=== PATIENT | female | born 1955 | race Caucasian/White ===

== ENCOUNTER → 2019-03-12 16:16 | Outpatient (BNVA) | payer MEDICARE, MEDICAID, SELFPAY | PROVIDERS: Family Provider Nurse Practitioner; PCP Nurse Practitioner; Visit Provider Nurse Practitioner | DX: J44.9 Chronic obstructive pulmonary disease, unspecified (principal); I10 Essential (primary) hypertension; M54.5 Low back pain; E11.65 Type 2 diabetes mellitus with hyperglycemia; J30.89 Other allergic rhinitis; E03.8 Other specified hypothyroidism | CPT/HCPCS: 80053; 80061; 81003; 83036 ==

== ENCOUNTER → 2019-09-02 09:10 | Outpatient (BNVA) | payer MEDICARE, MEDICAID, SELFPAY | PROVIDERS: Family Provider Nurse Practitioner; PCP Nurse Practitioner; Visit Provider Nurse Practitioner | DX: E11.65 Type 2 diabetes mellitus with hyperglycemia (principal); I10 Essential (primary) hypertension; J44.9 Chronic obstructive pulmonary disease, unspecified; E11.40 Type 2 diabetes mellitus with diabetic neuropathy, unspecified; J30.89 Other allergic rhinitis; E03.8 Other specified hypothyroidism; M54.5 Low back pain | CPT/HCPCS: 80053; 80061; 83036; 83735; 84443 ==

== ENCOUNTER → 2019-10-24 14:46 | Outpatient (BNVA) | payer MEDICARE, MEDICAID, SELFPAY | PROVIDERS: Family Provider Nurse Practitioner; PCP Nurse Practitioner; Visit Provider Nurse Practitioner | DX: E11.65 Type 2 diabetes mellitus with hyperglycemia (principal); L03.116 Cellulitis of left lower limb | CPT/HCPCS: 73502; 85025 ==

== ENCOUNTER → 2019-12-05 10:38 | Outpatient (BNVA) | payer MEDICARE, MEDICAID, SELFPAY | PROVIDERS: Family Provider Nurse Practitioner; PCP Nurse Practitioner; Visit Provider Nurse Practitioner | DX: E03.8 Other specified hypothyroidism (principal); E11.65 Type 2 diabetes mellitus with hyperglycemia; E11.40 Type 2 diabetes mellitus with diabetic neuropathy, unspecified; I10 Essential (primary) hypertension; J44.9 Chronic obstructive pulmonary disease, unspecified; J30.89 Other allergic rhinitis; R09.89 Other specified symptoms and signs involving the circulatory and respiratory systems | CPT/HCPCS: 80053; 81000; 83036; 84443 ==

== ENCOUNTER 2019-12-26 13:31 | Outpatient (CLI) | payer MEDICARE, MEDICAID, SELFPAY ==
--- NOTE | 2019-12-26 14:15 | USCV_ITS ---
Ronit Kathie Age: 64 Gender: F : 1955 Exam Date: 12/26/2019 13:57 Ordering Phys: Alfredo Dobbs Technologist: Sebastien Roque Exam Location: [facility] Indication: BRUITS Risk Factors: None Previous Vascular Surgery: None Right Brachial BP: / Left Brachial BP: / Right Left Velocity (cm/s) Spectral Plaque Velocity (cm/s) Spectral Plaque Syst/Diast Broadening Syst/Diast Broadening 54.00/ 11.10 Prox CCA 68.60 / 15.10 60.90/ 13.70 Mid CCA 59.50 / 14.30 54.70/ 13.40 Distal CCA 64.80 / 12.80 52.30/ 10.30 Prox ICA 48.20 / 12.10 56.60/ 10.90 Mid ICA 52.80 / 12.10 53.50/ 11.60 Distal ICA 52.80 / 7.50 54.10 ECA 70.10 0.93 ICA/CCA 0.77 Antegrade Vertebral Antegrade 25.60/ 8.30 cm/s 40.70/ 10.60 cm/s Tri Subclavian Tri 81.40 95.00 CONCLUSIONS Right ICA stenosis <50%. Left ICA stenosis <50%. Normal antegrade Doppler flow noted in the right vertebral artery. Normal antegrade Doppler flow noted in the left vertebral artery. Feliciano Eaton MD (Electronically Signed) Final Date: 26 December 2019 16:59 S
== END 2019-12-26 13:32 | disposition home or self-care (01) ==
LOC: RAD 13:34
PROVIDERS: PCP Nurse Practitioner; Visit Provider Nurse Practitioner
DX: R09.89 Other specified symptoms and signs involving the circulatory and respiratory systems (principal); I65.23 Occlusion and stenosis of bilateral carotid arteries
CPT/HCPCS: 93880

== ENCOUNTER → 2020-03-09 11:41 | Outpatient (BNVA) | payer MEDICARE, MEDICAID, SELFPAY | PROVIDERS: PCP Nurse Practitioner; Visit Provider Nurse Practitioner | DX: E11.65 Type 2 diabetes mellitus with hyperglycemia (principal); I10 Essential (primary) hypertension; E11.40 Type 2 diabetes mellitus with diabetic neuropathy, unspecified; J44.9 Chronic obstructive pulmonary disease, unspecified; J30.89 Other allergic rhinitis; E03.8 Other specified hypothyroidism | CPT/HCPCS: 80053; 80061; 82043; 83036; 84443 ==

== ENCOUNTER → 2020-03-19 10:40 | Outpatient (BNVA) | payer MEDICARE, MEDICAID, SELFPAY | PROVIDERS: PCP Nurse Practitioner; Visit Provider Nurse Practitioner Family | DX: R30.0 Dysuria (principal); N30.00 Acute cystitis without hematuria | CPT/HCPCS: 81000 ==

== ENCOUNTER → 2020-05-06 09:44 | Outpatient (BNVA) | payer MEDICARE, MEDICAID, SELFPAY | PROVIDERS: PCP Nurse Practitioner; Visit Provider Nurse Practitioner | DX: E11.65 Type 2 diabetes mellitus with hyperglycemia (principal); E11.40 Type 2 diabetes mellitus with diabetic neuropathy, unspecified; I10 Essential (primary) hypertension; E03.8 Other specified hypothyroidism; J41.0 Simple chronic bronchitis; J30.89 Other allergic rhinitis | CPT/HCPCS: 80053; 83036; 84443 ==

== ENCOUNTER → 2020-07-01 15:59 | Outpatient (BNVA) | payer MEDICARE, MEDICAID, SELFPAY | PROVIDERS: PCP Nurse Practitioner; Visit Provider Nurse Practitioner | DX: R19.7 Diarrhea, unspecified (principal) | CPT/HCPCS: 81000; 87506 ==

== ENCOUNTER → 2020-08-12 11:51 | Outpatient (BNVA) | payer MEDICARE, MEDICAID, SELFPAY | PROVIDERS: PCP Nurse Practitioner; Visit Provider Nurse Practitioner | DX: M47.896 Other spondylosis, lumbar region (principal); M54.5 Low back pain | CPT/HCPCS: 72100 ==

== ENCOUNTER → 2020-09-01 10:26 | Outpatient (BNVA) | payer MEDICARE, MEDICAID, SELFPAY | PROVIDERS: PCP Nurse Practitioner; Visit Provider Nurse Practitioner | DX: E11.65 Type 2 diabetes mellitus with hyperglycemia (principal); E11.40 Type 2 diabetes mellitus with diabetic neuropathy, unspecified; I10 Essential (primary) hypertension; J41.0 Simple chronic bronchitis; J30.89 Other allergic rhinitis; R19.7 Diarrhea, unspecified | CPT/HCPCS: 80053; 83036; 84443; 85025 ==

== ENCOUNTER → 2020-11-27 09:34 | Outpatient (BNVA) | payer MEDICARE, MEDICAID, SELFPAY | PROVIDERS: PCP Nurse Practitioner; Visit Provider Nurse Practitioner | DX: E11.65 Type 2 diabetes mellitus with hyperglycemia (principal); I10 Essential (primary) hypertension; J41.0 Simple chronic bronchitis; E11.40 Type 2 diabetes mellitus with diabetic neuropathy, unspecified; J30.89 Other allergic rhinitis; B02.23 Postherpetic polyneuropathy; E03.8 Other specified hypothyroidism | CPT/HCPCS: 80053; 80061; 83036; 84443; 85025 ==

== ENCOUNTER → 2021-02-23 16:07 | Outpatient (BNVA) | payer OTHER, MEDICAID, SELFPAY | PROVIDERS: PCP Nurse Practitioner; Visit Provider Nurse Practitioner | DX: E11.65 Type 2 diabetes mellitus with hyperglycemia (principal) | CPT/HCPCS: 80053; 82043; 83036 ==

== ENCOUNTER → 2021-05-18 14:14 | Outpatient (BNVA) | payer MEDICARE, MEDICAID, SELFPAY | PROVIDERS: PCP Nurse Practitioner; Visit Provider Nurse Practitioner | DX: E03.8 Other specified hypothyroidism (principal); E11.65 Type 2 diabetes mellitus with hyperglycemia; J41.0 Simple chronic bronchitis; E11.40 Type 2 diabetes mellitus with diabetic neuropathy, unspecified; J30.89 Other allergic rhinitis; I10 Essential (primary) hypertension | CPT/HCPCS: 84443 ==

== ENCOUNTER → 2021-08-30 09:49 | Outpatient (BNVA) | payer MEDICARE, MEDICAID, SELFPAY | PROVIDERS: PCP Nurse Practitioner; Visit Provider Nurse Practitioner Family | DX: E11.65 Type 2 diabetes mellitus with hyperglycemia (principal); J41.0 Simple chronic bronchitis | CPT/HCPCS: 81000 ==

== ENCOUNTER → 2021-11-02 11:10 | Outpatient (BNVA) | payer MEDICARE, MEDICAID, SELFPAY | PROVIDERS: PCP Nurse Practitioner; Visit Provider Nurse Practitioner | DX: J41.0 Simple chronic bronchitis (principal); J30.89 Other allergic rhinitis; E11.40 Type 2 diabetes mellitus with diabetic neuropathy, unspecified; E03.8 Other specified hypothyroidism; I10 Essential (primary) hypertension; E11.65 Type 2 diabetes mellitus with hyperglycemia | CPT/HCPCS: 80053; 80061; 81000; 83036; 84443 ==

== ENCOUNTER → 2022-01-18 11:21 | Outpatient (BNVA) | payer MEDICARE, MEDICAID, SELFPAY | PROVIDERS: PCP Nurse Practitioner; Visit Provider Nurse Practitioner | DX: E11.65 Type 2 diabetes mellitus with hyperglycemia (principal) | CPT/HCPCS: 80053; 81000; 82607; 83036; 85025 ==

== ENCOUNTER 2022-03-23 10:30 | Outpatient (CLI) | payer MEDICARE, MEDICAID, SELFPAY ==
--- NOTE | 2022-03-23 11:45 | MR_ITS ---
WS: [id number] MRI HEAD WITHOUT CONTRAST TECHNIQUE: Sagittal T1, T2 axial, T2 axial FLAIR, axial and coronal T1 images, axial susceptibility w eighted imaging, axial diffusion weighted images, and coronal T2 images were obtained. CLINICAL INFORMATION: R41.3 - Other amnesia COMPARISON: None. FINDINGS: No evidence of restricted diffusion to suggest acute ischemia. Ventricular system and basal cisterns are patent. Mild small vessel changes. Mild parenchymal volume loss. Normal posterior fossa. Normal v ascular flow voids at the skull base. No extra-axial fluid collections. No evidence of mass or mass e ffect. Mild mucosal thickening RIGHT mastoid air cells. Normal posterior nasopharynx. Normal parapharyngeal fat. Normal optic chiasm and pituitary infundibulum. Normal cavernous sinuses and Meckel's cave. MR/MR head wo con* [id number] IMPRESSION: 1. No evidence of restricted diffusion to suggest acute ischemia. 2. Mild small vessel changes. Mild parenchymal volume loss. 3. No hemosiderin on susceptibly weighted images. 4. Normal optic chiasm and pituitary infundibulum. 5. Paranasal sinuses are well aerated. Mild mucosal thickening RIGHT mastoid a ir cells. 6. No other suspicious findings.
== END 2022-03-23 10:31 | disposition home or self-care (01) ==
LOC: RAD 10:33
PROVIDERS: PCP Nurse Practitioner; Visit Provider Nurse Practitioner
DX: R41.3 Other amnesia (principal)
CPT/HCPCS: 70551

== ENCOUNTER → 2022-03-25 09:51 | Outpatient (BNVA) | payer MEDICARE, MEDICAID, SELFPAY | PROVIDERS: PCP Nurse Practitioner; Visit Provider Nurse Practitioner | DX: E11.65 Type 2 diabetes mellitus with hyperglycemia (principal) | CPT/HCPCS: 80053; 80061; 82043; 83036; 84443 ==

== ENCOUNTER → 2022-06-15 11:35 | Outpatient (BNVA) | payer MEDICARE, MEDICAID, SELFPAY | PROVIDERS: PCP Nurse Practitioner; Visit Provider Nurse Practitioner | DX: E11.65 Type 2 diabetes mellitus with hyperglycemia (principal) | CPT/HCPCS: 80053; 80061; 81000 ==

== ENCOUNTER → 2022-08-30 12:08 | Outpatient (BNVA) | payer MEDICARE, MEDICAID, SELFPAY | PROVIDERS: PCP Nurse Practitioner; Visit Provider Nurse Practitioner | DX: J41.0 Simple chronic bronchitis (principal); F41.8 Other specified anxiety disorders; J30.89 Other allergic rhinitis; E11.40 Type 2 diabetes mellitus with diabetic neuropathy, unspecified; E03.8 Other specified hypothyroidism; I10 Essential (primary) hypertension; E11.65 Type 2 diabetes mellitus with hyperglycemia; R39.11 Hesitancy of micturition; L30.9 Dermatitis, unspecified | CPT/HCPCS: 80053; 82043; 83036; 84443 ==

== ENCOUNTER → 2022-11-29 09:42 | Outpatient (BNVA) | payer MEDICARE, MEDICAID, SELFPAY | PROVIDERS: PCP Nurse Practitioner; Visit Provider Nurse Practitioner | DX: E11.65 Type 2 diabetes mellitus with hyperglycemia | CPT/HCPCS: 82043 ==

== ENCOUNTER 2024-10-17 10:06 | Emergency (ER) | payer MEDICARE, MEDICAID, SELFPAY ==
--- NOTE | 2024-10-17 | XR_ITS ---
WS: [id number] Right shoulder, AP postreduction view, 10/17/2024,1120 hours Clinical Data: POST REDUCTION Comparison: Right shoulder, 10/17/2024 Findings: The right humeral head is relocated in proper position adjacent to the glenoid fossa. XR/XR shoulder RT 1V [id number] Impression: Reduction of right shoulder dislocation.
[2024-10-17 10:07] VITALS: BP 139/78; PULSE 60; RESP 20; TEMP 36.4; O2SAT 90
--- OUTSIDE RECORDS SUMMARY | 2024-10-17 10:13 | XMS_ITS | Clinical Summary ---
Author Organization [facility] [place] Address [address] [place] [address] Care Team Providers Care Rodeo Clown Name Role Phone Non-Staff, Physician Primary Care Provider Unava ilable Allergies Active Allergy Reactions Criticality Noted Date Comments Citric Acid Rash Low 05/18/2011 Clindamycin Other (See Comments) High 05/15/2009 Itch, elevated blood pressure Fluconazole Itching,Dizziness Low 04/10/2012 Ibuprofen Other (See Comments) 04/14/2009 Causes jittery. Latex Rash Low 04/14/2009 Lemon Unknown 04/14/2009 '' Blisters form'' Mercury (Elemental) Unknown 04/14/2009 Metal, '' Metal filling have been the cause of all her problems.'' Povidone-Iodine Other (See Comments) 04/14/2009 '' Causes blisters'' Procaine Other (See Comments) 04/14/2009 Jittery and excited. Unclassified Drug Other (See Comments) 09/11/19 13 Jalapeno pepper cause blisters, old spine cologne Medications CHLORPHENIRAMINE MALEATE (CHLOR-TABLET PO) Take 4 mg by mouth every 6 hours as needed. 0 Active APPLE CIDER VINEGAR ORAL Take by mouth daily . Active oxygen home deliveryIndication s:Hypoxia,Hypoxemi a requiring supplemental oxygen Administer 2 L/min in each nostril. Is patients oxygen measured below 88% on room air at rest? - yes. Is patient stable at home or within 3 days of discharge from hospital? - yes. Is the patient diagnosed with hypoxia? - yes. 1 Each prn 1 Active ACID SECURITY GUARD DISPATCHER, CIMETIDINE, ORAL Take by mouth 1 time daily as needed . Active ACETAMINOPHEN (ARTHRITIS PAIN RELIEVER ORAL) Take 1 Tablet by mouth 1 time daily as needed . Active aspirin (ECOTRIN EC) 81 mg Tablet, Delayed Release (E.C.) Take 81 mg by mouth daily. Active potassium chloride (KLOR-CON) 10 mEq Extended Release tablet TAKE ONE TABLET BY MOUTH TWO TIMES A DAY. 180 Tablet 1 6 Active fluticasone (FLONASE) 50 mcg/spray [place], Suspension USE 2 SPRAYS IN EACH NOSTRIL EVERY DAY. 16 Gram 5 6 Active Blood-Glucose Meter KitIndications:Celena corrina mellitus type II, uncontrolled Use for checking blood sugar BID. 1 Kit 0 6 Active SIMETHICONE (GAS RELIEF ORAL) Take by mouth. Ac tive multivitamin (DAILY-SANGITA) tablet Take 1 Tablet by mouth daily. Active OMEGA-3S/DHA/EPA/F SARAH OIL (OMEGA 3 ORAL) Take 2 Capsule by mouth daily. Active Zanyb-4-CWW-EPA-Fi sh Oil 1,200 (144-216) mg Capsule Take by mouth. Activ e OTHER Super strength water pill OTC 2 tabs daily . Active magnesium oxide 250 mg Tablet Take 250 mg by mouth daily. Active Dimethicone-Colloi erma Oatmeal (RENEWAL DAILY MOISTURE LOTION) 1.25 % Lotion Apply to affected area. Active furosemide (LASIX) 40 mg tablet TAKE ONE TABLET BY MOUTH EVERY DAY. 90 Tablet 1 7 Active gabapentin (NEURONTIN) 600 mg tablet TAKE 1/2 TABLET BY MOUTH AT NOON & TAKE ONE TABLET EVERY NIGHT AT BEDTIME 45 Tablet 5 7 Active metFORMIN (GLUCOPHAGE) 1,000 mg tablet TAKE 1 TABLET BY MOUTH 2 TIMES DAILY WITH MEALS. 180 Tablet 1 7 Active thyroid, pork, (ARMOUR THYROID) 60 mg tabletIndications: Hair loss,Acquired hypothyroidism Take 1 Tablet (60 mg) by mouth daily. 30 Tablet 5 7 Active tiZANidine (ZANAFLEX) 4 mg TabletIndications: Muscle cramp, nocturnal Take 0.5-1 Tablets (2-4 mg) by mouth 3 times daily as needed for Spasm. 30 Tablet 3 7 Active atenolol (TENORMIN) 50 mg tablet TAKE ONE TABLET BY MOUTH EVERY DAY. 90 Tablet 1 7 Active lisinopril (PRINIVIL) 20 mg tablet TAKE 1 TABLET BY MOUTH 2 TIMES DAILY. 180 Tablet 1 7 Active nystatin (NYSTOP) 100,000 unit/gram powder APPLY TO AFFECTED AREA TWO TIMES A DAY. 60 Gram 5 7 Active PROAIR HFA 90 mcg/actuation inhaler INHALE 2 PUFFS INTO LUNGS EVERY 6 HOURS NEEDED FOR SHORTNESS OF BREATH 8.5 Gram 3 7 Active nystatin-triamcino lone (MYCOLOG) 100,000-0.1 unit/gram-% Ointment Apply to affected area 2 times daily. 60 Gram 3 8 Active Active Problems Problem Noted Date Diagnosed Date Hyperlipidemia 09/08/2015 Shoulder impingement 12/02/2014 Complete tear of right rotator cuff 12/02/2014 Right shoulder pain 12/02/2014 COPD (chronic obstructive pulmonary disease) Obstructive sleep apnea on CPAP 01/07/2011 Hypoxia 12/30/2010 Hypoxemia requiring supplemental oxygen 12/31/19 11 Special screening for malignant neoplasms, colon 09/16/2010 Deviated nasal septum 05/13/2010 Constipation 05/13/2010 Sleep apnea 03/26/2010 Hypothyroidism 03/03/2010 Malaise and fatigue 03/02/2010 Diabetes mellitus type II, uncontrolled 01/27/20 10 Hand dermatitis 12/07/2009 Lumbar radiculopathy 11/25/2009 Osteoarthritis 07/07/2009 HTN (hypertension) 07/07/2009 Headache(784.0) 07/07/2009 Neuroma 04/15/2009 Resolved Problems Problem Noted Date Diagnosed Date Resolved Date Nonhealing nonsurgical wound 04/15/2009 05/18/2011 Immunizations Immunization Administration Dates Next Due (ADACEL/BOOSTRIX)(10 YR UP) TDAP VACCINE, 0.5ML, IM 03/02/2010 Influenza Vaccine Split 3+ Yrs PF IM 01/01/2013, 01/02/2012,03/02/2010 Zoster Vaccine Live SQ 04/22/2013 Family History Medical History Relation Name Comments Cancer Brother 1 skin ca Hypertension Brother 1 Diabetes Brother 2 High Cholesterol Brother 2 Hypertension Brother 2 Heart Disease Brother 3 Hypertension Brother 3 Cancer Father skin ca Diabetes Father Hypertension Father Lung Cancer Father Cancer Mother uterine Diabetes Mother Heart Disease Mother High Cholesterol Mother Hypertension Mother Other Paternal Grandfather glucoma Other Paternal Grandmother dementi a Breast Cancer Neg Hx Colon Cancer Neg Hx Relation Name Status Comments Brother 1 Brother 2 Brother 3 Father Mother Paternal Grandfather Paternal Grandmother Social History Tobacco Use Types Packs/Day Years Used Date Smoking Tobacco: Never Cigarettes - 03/06/1989 Smokeless Tobacco: Former Chew Comments:1989 Alcohol Use Standard Drinks/Week Comments No 0 (1 standard drink = 0.6 oz pur e alcohol) Comments No Sex and Gender Information Value Date Recorded Sex Assigned at Not on file Legal Sex 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 Gender Identity Not on file Sexual Orientation Not on file Last Filed Vital Signs Vital Sign Reading Time Taken Comments Blood Pressure 142/93 11/03/2016 8:36 AM CDT Pulse 60 11/03/2016 8:36 AM CDT Temperature 36.3 C (97.3 F) 11/03/2016 8:36 AM CDT Respiratory Rate 18 11/03/2016 8:36 AM CDT Oxygen Saturation 95% 11/03/2016 8:36 AM CDT Inhaled Oxygen Concentration - - Weight 110.2 kg (243 lb) 11/03/2016 8:36 AM CDT Height 157.5 cm (5' 2 ) 11/03/2016 8:36 AM CDT Body Mass Index 44.45 11/03/2016 8:36 AM CDT Plan of Treatment Health Maintenance Due Date Last Done Comments PNEUMOCOCCAL VACCINE 50+ YEA RS (1 of 2 - PCV) 1972 FIT-DNA Q 3 years 1998 FIT/FOBT Q 1 year 1998 Flex Sig/CT Colonography Q 5 years 1998 BREAST CANCER SCREENING 03/18/2011 03/18/2010, 03/04 RSV VACCINE (60+ or ) (1 - Risk 60-74 years 1-dose series) 2013 ZOSTER VACCINE (2 of 3) 06/17/2013 04/22/2013 DIABETES ANNUAL FOOT EXAM 09/09/2015 09/08/2014 DIABETES HBA1C Q 6 MONTHS 03/25/20172016, 09/08/2015, 09/08/2014, Additional history exists DIABETES MICROALBUMIN ANNUAL SCREEN 09/22/2017 09/22/2016, 09/08/2015, 09/08/2014, Additional history exists LDL CHOLESTEROL ANNUAL 09/22/2017 7, 09/08/2015, 09/30/2013, Additional history exists OSTEOPOROSIS SCREENING 2018 DIABETES ANNUAL RETINAL EXAM 02/23/2019, 02/23/2018, 06/08/2016, Additional history exists DTAP/TDAP/TD VACCINES (2 - T d or Tdap) 03/02/2020 03/02/2010 COLORECTAL SCREENING 09/17/2020 09/17/2010, 09/17/19 11 Colorectal Cancer Screening 09/17/2020 INFLUENZA VACCINE (#1) 2024 3, 01/02/2012, 03/02/2010 Procedures Procedure Name Priority Date/Time Associated Diagnosis Comments DIABETES EYE EXAM Routine 02/23/2018 MICROALBUMIN/CREATI NINE RATIO, RANDOM UR Routine 09/22/2016 9:47 AM CDT Uncontrolled type 2 diabetes mellitus with diabetic polyneuropathy, without long-term current use of insulin LIPID PANEL Routine 09/22/2016 9:46 AM CDT Mixed hyperlipidemia HEMOGLOBIN A1C Routine 09/22/2016 9:46 AM CDT Uncontrolled type 2 diabetes mellitus with diabetic polyneuropathy, without long-term current use of insulin ENDOSCOPY, COLON, SCREENING Routine 09/17/2010 8:09 AM CDT Special screening for malignant neoplasms, colon MAMMO BILAT ADDITIONAL VW Routine 03/18/2010 Screening for breast cancer from Last 3 Months or Most Recently Relevant to Health Maintenance Results * DIABETES EYE EXAM (02/23/2018) us Abstract Spg Provider HEALTH MAINTENANCE Final R esult * (ABNORMAL) MICROALBUMIN/CREATININE RATIO, RANDOM UR (09/22/2016 9:47 AM CDT) MICROALBUMIN, URINE <1.2 No Reference Range mg/dL 09/22/2016 9:46 PM CDT [facility] CREATININE, URINE 23.3(L) 29.0 - 226.0 mg/dL 09/22/2016 9:46 PM CDT [facility] Comment: Reference Range varies with fluid intake and diet. Urine URINE SPECIMEN OBTAINED BY CLEAN CATCH PROCEDURE / Unknown Collection / Unknown 09/22/2016 9:47 AM CDT 09/22/2016 8:34 PM CDT [facility] - 09/22/2016 9:46 PM CDT Condition Microalbumin/Creat ratio Normal Males <17 Normal Females <25 Microalbuminuria Males 17-299 Microalbuminuria Females 25-299 Overt proteinuria >=300 Unable to calculate urine microalbumin/creatinine ratio due to below linear urine microalbumin result. Lise Song APRN URINE ORDERABLES Final Result [facility] CLIA# [id number] [address] [place] [address] * (ABNORMAL) HEMOGLOBIN A1C (09/22/2016 9:46 AM CDT) HEMOGLOBIN A1C 7.3(H) 4.0 - 6.0 % 09/22/2016 9:20 PM CDT [facility] EST. AVG GLUCOSE, A1C 163 mg/dL 09/22/2016 9:20 PM CDT [facility] Blood Collection / Unknown 09/22/2016 9:46 AM CDT 09/22/2016 8:39 PM CDT Dez [facility] - 09/22/2016 9:20 PM CDT Falsely low A1C measurements can occur when: 1. Anemia and/or hemolytic anemia is present. 2. Hemoglobin variants present. 3. Renal failure. 4. Transfusion of blood product in the last 120 days. We recommend ordering a fructosamine test([id number]) to more accurately assess glycemic status if any of the above conditions are present. [facility] CREATIVE ARTS MUSIC THERAPIST CHEMISTRY ORDERAB LES Final Result [facility] CLIA# [id number] [place] [address] * (ABNORMAL) LIPID PANEL (09/22/2016 9:46 AM CDT) CHOLESTEROL 170 <200 mg/dL 09/22/2016 9:24 PM CDT [facility] TRIGLYCERIDE 248(H) <150 mg/dL 09/22/2016 9:24 PM CDT [facility] HDL 44 40 - 59 mg/dL 09/22/2016 9:24 PM CDT [facility] LDL CALCULATED 76 <100 mg/dL 09/22/2016 9:24 PM CDT [facility] NON-HDL CHOLESTEROL 126 <130 mg/dL 09/22/2016 9:24 PM CDT [facility] Blood Collection / Unknown 09/22/2016 9:46 AM CDT 09/22/2016 8:36 PM CDT Narrative [facility] - 09/22/2016 9:24 PM CDT TOTAL CHOLESTEROL mg/dL Desirable <200 Borderline high 200-239 High >=240 TRIGLYCERIDES mg/dL Normal <150 Borderline high 150-199 High 200-499 Very high >=500 HDL CHOLESTEROL mg/dL Low <40 Normal 40-59 Desirable >=60 NON HDL CHOLESTEROL mg/dL Optimal <130 Near Optimal 130-159 Borderline High 160-189 Very High >=190 Calculated LDL mg/dL Optimal <100 Near Optimal 100-129 Borderline High 130-159 High 160-189 Very High >=190 ATPIII Guidelines Reference Ranges for Lipid Panels (NCEP/AMA) Lise Cookjohnston CREATIVE ARTS MUSIC THERAPIST CHEMISTRY ORDERAB LES Final Result [facility] CLIA# [id number] [place] [address] * ENDOSCOPY, COLON, SCREENING (09/17/2010 8:09 AM CDT) Narrative Transcriptions Francisco Javier Champagne MD - 09/17/2010 8:09 AM CDT [place], [place] ENDOSCOPY NAME KATHIE CHAMPAGNE CSN # [id number] 1955 AGE 55Y PHYSICIAN Francisco Javier Champagne MD DATE: 09/16/2010 REFERRING PHYSICIAN: Lise Song RN, MSN, BOOK PACKER PROCEDURE: Colonoscopy. INDICATION: Screening for colorectal neoplasm. MEDICATIONS: Versed 5 mg IV and fentanyl 100 mcg IV in titrated doses. DESCRIPTION OF THE PROCEDURE: After reviewing the risks, benefits, andalternatives of the procedure with the patient, she signed a consent form.She was placed in the left lateral decubitus position and IV conscioussedation was administered while monitoring blood pressure, pulse oximetry,and EKG. The colonoscope was introduced through the rectum and underdirect visualization was advanced to the terminal ileum. Carefulinspection of the mucosa was made as the colonoscope was withdrawn. Thequality of the preparation was good. The patient tolerated the procedurewell and there were no immediate complications. FINDINGS: Retroflex examination in the rectum revealed small internalhemorrhoids. The rest of the visualized colonic mucosa was normal withoutmasses, polyps, or inflammation. IMPRESSION: Internal hemorrhoids, otherwise normal visualized colon andterminal ileum. RECOMMENDATIONS: Screening colonoscopy in 10 years. Francisco Javier Champagne MD medq D: [id number] V: [id number] cc: Lise Song, RN, MSN, BOOK PACKER us Francisco Javier Champagne MD GI PROCEDURE ORDERABLES Final Result * MAMMO BILAT ADDITIONAL VW (03/18/2010) Anatomical Region Laterality Modality Breast Bilateral Other Lise Song CREATIVE ARTS MUSIC THERAPIST MAMMO ORDERABLES Final Result from Last 3 Months or Most Recently Relevant to Health Maintenance Insurance [place] PART [place] B Advance Directives For more information, please contact: [phone] * Full Code (Latest Code Status on File) Date Activated Date Inactivated Comments 09/16/2010 9:58 AM 09/16/2010 1:04 PM * Full Code Date Activated Date Inactivated Comments 11/05/2009 3:45 PM 11/07/2009 8:29 PM * Full Code Date Activated Date Inactivated Comments 11/05/2009 10:37 AM 11/05/2009 3:45 PM * Full Code Date Activated Date Inactivated Comments 11/05/2009 8:23 AM 11/05/2009 10:37 AM Care Teams Rodeo Clown Relationship Specialty Start Date End Date Non-Staff, Physician NO ADDRESS ON FILE PCP - General 02/15/18
--- NOTE | 2024-10-17 10:15 | XR_ITS ---
WS: [id number] Right shoulder, 3 views, 10/17/2024 Clinical Data: Trauma Comparison: None. Findings: There is an anterior subcoracoid dislocation. No definite fractures are seen. The AC joint is normal. XR/XR shoulder RT min 2V* [id number] Impression: Anterior subcoracoid dislocation of the right shoulder.
--- NOTE | 2024-10-17 10:53 | PC.PHAR ---
[facility] Pt states she no longer takes asa 81mg or Prozac 40mg ([facility]). Removed from chart.
[2024-10-17] MEDS: fentaNYL 50 mcg/mL INJ 2mL IVP (11:06)
[2024-10-17 11:15] VITALS: BP 157/103; PULSE 65; PULSE 66; RESP 16; O2SAT 99
[2024-10-17] MEDS: midazolam 1 mg/mL INJ 2 mL 3 MG IVP (11:18)
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
[2024-10-17 12:13] VITALS: BP 143/79; PULSE 58; O2SAT 97
--- NOTE | 2024-10-17 12:31 | XR_ITS ---
WS: [id number] Right hip, 2 views, AP pelvis, 10/17/2024 Clinical Data: fall Comparison: None. Findings: No fractures or dislocations are seen. The hips show no fractures or dislocations. The femoral heads are located within the acetabulum. The soft tissues are not remarkable. The adjacent pelvis is normal. XR/XR hip RT 2-3V wo/w pel* [id number] Impression: Negative pelvis and right hip.
--- NOTE | 2024-10-17 12:31 | XR_ITS ---
WS: [id number] Right femur and thigh, AP and lateral views, 10/17/2024 Clinical Data: fall Comparison: None. Findings: No fractures or dislocations are seen. The soft tissues are normal. The visualized knee shows no abnormalities, but the patella is not visualized. XR/XR femur RT min 2V* [id number] Impression: Negative right femur and thigh.
--- NOTE | 2024-10-17 17:14 | DCPLANNER ---
messaged ortho for er f/u. faxed outpatient mri order to scheduling
== END 2024-10-17 13:35 | disposition home or self-care (01) ==
PROVIDERS: Emergency Provider Family Medicine; PCP Family Medicine
DX: S43.084A Other dislocation of right shoulder joint, initial encounter (principal); W11.XXXA Fall on and from ladder, initial encounter; Z79.85 Long-term (current) use of injectable non-insulin antidiabetic drugs; J44.9 Chronic obstructive pulmonary disease, unspecified; I10 Essential (primary) hypertension; E11.40 Type 2 diabetes mellitus with diabetic neuropathy, unspecified
CPT/HCPCS: 23650; 73020; 73030; 73502; 73552; 99152; 99285; J2250; J3010; L3670

== ENCOUNTER → 2024-10-23 13:03 | Outpatient (BNVA) | payer MEDICARE, MEDICAID, SELFPAY | PROVIDERS: PCP Family Medicine; Visit Provider Student in an Organized Health Care Education/Training Program | DX: S43.011A Anterior subluxation of right humerus, initial encounter (principal); W17.89XA Other fall from one level to another, initial encounter; M19.011 Primary osteoarthritis, right shoulder | CPT/HCPCS: 73030; 99204 ==

== ENCOUNTER → 2024-10-25 10:50 | Outpatient (BNVA) | payer MEDICARE, MEDICAID, SELFPAY | PROVIDERS: PCP Family Medicine; Visit Provider Physician Assistant | DX: M17.11 Unilateral primary osteoarthritis, right knee (principal); S89.91XA Unspecified injury of right lower leg, initial encounter; W19.XXXA Unspecified fall, initial encounter | CPT/HCPCS: 73560; 73565; 99213 ==

== ENCOUNTER → 2024-12-17 14:51 | Outpatient (BNVA) | payer MEDICARE, MEDICAID, SELFPAY | PROVIDERS: PCP Family Medicine; Visit Provider Student in an Organized Health Care Education/Training Program | DX: S43.014A Anterior dislocation of right humerus, initial encounter (principal); S46.001A Unspecified injury of muscle(s) and tendon(s) of the rotator cuff of right shoulder, initial encounter; X58.XXXA Exposure to other specified factors, initial encounter | CPT/HCPCS: 73030; 99213 ==

== ENCOUNTER 2025-01-03 10:40 | Outpatient (CLI) | payer MEDICARE, MEDICAID, SELFPAY ==
--- NOTE | 2025-01-03 11:00 | MR_ITS ---
WS: [id number] MRI RIGHT SHOULDER NONCONTRAST TECHNIQUE: Sagittal T2, coronal T1, T2 and proton density imaging. Axial gradient PDE imaging. CLINICAL INFORMATION: right shoulder dislocation injury COMPARISON: None. FINDINGS: Advanced degenerative arthritis AC joint with loss of the subacromial space. High-grade complete tear of the supraspinatus with retraction to the level of the glenohumeral joint. Tendinopathy involving the infraspinatus with tendinopathy and partial intrasubstance tears. Tiny distal insertional tear. S ubacromial subdeltoid fluid. Normal teres minor. Biceps tendon absent from the bicipital groove with a tiny remnant likely due to chronic tear. Moderate to advanced degenerative narrowing of the glenohumeral articulation. Subscapularis tendon appears intact. Degenerative fraying of the glenoid labrum. MR/MR shoulder RT wo con* [id number] IMPRESSION: 1. Advanced degenerative arthritis AC joint with fluid and edema. Narrowing of the subacromial space with subacromial subdeltoid fluid. 2. High-grade complete tear of the supraspinatus with retraction to the glenoh umeral joint. 3. Tendinopathy infraspinatus with partial intrasubstance tears and tiny inser tional tear. No tendon retraction. 4. Biceps tendon absent from the bicipital groove likely due to chronic tear. 5. Moderate to advanced degenerative narrowing of the glenohumeral articulatio n.
== END 2025-01-03 10:41 | disposition home or self-care (01) ==
LOC: RAD 10:41
PROVIDERS: PCP Family Medicine; Visit Provider Student in an Organized Health Care Education/Training Program
DX: M19.011 Primary osteoarthritis, right shoulder (principal)
CPT/HCPCS: 73221

== ENCOUNTER → 2025-02-12 07:55 | Outpatient (BNVA) | payer MEDICARE, MEDICAID, SELFPAY | PROVIDERS: PCP Family Medicine; Visit Provider Student in an Organized Health Care Education/Training Program | DX: M75.101 Unspecified rotator cuff tear or rupture of right shoulder, not specified as traumatic (principal); M75.41 Impingement syndrome of right shoulder; M19.011 Primary osteoarthritis, right shoulder | CPT/HCPCS: 99214 ==

== ENCOUNTER → 2025-02-14 10:34 | Outpatient (BNVA) | payer MEDICARE, MEDICAID, SELFPAY | PROVIDERS: PCP Family Medicine; Visit Provider Physician Assistant | DX: M25.561 Pain in right knee (principal); S89.91XD Unspecified injury of right lower leg, subsequent encounter; X58.XXXD Exposure to other specified factors, subsequent encounter | CPT/HCPCS: 73560; 73565; 99213 ==